=== PATIENT | female | born 2000 | race Two or more races ===

== ENCOUNTER 2020-05-23 14:45 | Inpatient (IN) | payer OTHER ==
[2020-05-23 16:08] VITALS: BP 114/65; PULSE 86; TEMP 98.8; BMI 44.2
[2020-05-23] MEDS ORDERED: ELECTROLYTE-148 SOLN 1,000 ML IV SCH (16:15)
[2020-05-23] MEDS ORDERED: BETAMET ACET/BETAMET NA PH 30 MG/5 ML VIAL ONE (16:28)
== END 2020-05-23 18:19 | disposition short-term general hospital (02) | DRG 833 ==
LOC: JDEL 14:45 → JLDR 15:40
PROVIDERS: ADMIT Obstetrics & Gynecology; ATTEND Obstetrics & Gynecology
DX: O34.32 Maternal care for cervical incompetence, second trimester (principal); O99.212 Obesity complicating pregnancy, second trimester; O26.872 Cervical shortening, second trimester; Z3A.22 22 weeks gestation of pregnancy
CPT/HCPCS: 59025; 76801-TC

== ENCOUNTER 2020-07-20 10:18 | Inpatient (IN) | payer OTHER ==
[2020-07-20 10:24] VITALS: BMI 44.2
[2020-07-20 11:28] LABS: EPI CELLS 21 /uL (0-25.1); HYALINE CASTS 2 /uL (0-3.1); URINE APPEARANCE CLEAR; URINE BACTERIA 841 /uL (0-1359); URINE BILIRUBIN NEGATIVE (NEGATIVE); URINE COLOR YELLOW; URINE GLUCOSE (UA) NEGATIVE (NEGATIVE); URINE KETONE NEGATIVE (NEGATIVE); URINE LEUK ESTERASE 1+ (NEGATIVE); URINE NITRITE NEGATIVE (NEGATIVE); URINE PROTEIN TRACE (NEGATIVE); URINE WBC 120 /uL (0-25.8)
[2020-07-20 11:29] LABS: HCG,QUALITATIVE URINE Negative
[2020-07-20 11:38] LABS: URINE RBC 34.6 /uL (0-23.9)
[2020-07-20] MEDS ORDERED: ACETAMINOPHEN 325 MG TABLET (FP) PO ONE (11:51)
[2020-07-20] MEDS ORDERED: FAMOTIDINE 20 MG TABLET PO ONE (11:51)
[2020-07-20] MEDS ORDERED: ACETAMINOPHEN 325 MG TABLET (FP) ONE (12:22)
[2020-07-20] MEDS ORDERED: FAMOTIDINE 20 MG TABLET ONE (12:23)
[2020-07-20 13:43] LABS: BASO % 0.7 % (0-2.0); EOS % 1.8 % (0-4.5); HEMATOCRIT 39.9 % (32.4-45.2); HEMOGLOBIN 13.4 GM/dL (10.7-15.3); LYMPH % 52.1 % (8-40); MCH 30.8 pg (25.7-33.7); MCHC 33.5 g/dl (32.0-36.0); MEAN CELL VOLUME 91.9 fl (80-96); MEAN PLT VOLUME 7.9 fl (7.5-11.1); MONO % 5.2 % (3.8-10.2); NEUT % 40.2 % (42.8-82.8); PLATELET COUNT 339 10^3/uL (134-434); RBC 4.34 M/mm3 (3.60-5.2); RDW 12.4 % (11.6-15.6); WHITE BLOOD COUNT 3.6 K/mm3 (4.0-10.0)
[2020-07-20 14:05] LABS: CALCIUM 9.6 mg/dL (8.5-10.1)
[2020-07-20 14:06] LABS: ALBUMIN 3.8 g/dl (3.4-5.0); BLOOD UREA NITROGEN 13.1 mg/dL (7-18)
[2020-07-20 14:09] LABS: CREATININE 0.6 mg/dL (0.55-1.3)
[2020-07-20 14:10] LABS: BILIRUBIN,TOTAL 1.2 mg/dL (0.2-1); TOT PROT 7.8 g/dl (6.4-8.2)
[2020-07-20] MEDS ORDERED: PIPERACILLIN/TAZOB 3.375 GM 3.375 GM in DEXTROSE 5%-WATER - 50 ML IVPB ONE (14:22)
[2020-07-20] MEDS ORDERED: PIPERACILLIN/TAZOB 3.375 GM 3.375 GM/50 ML BAG IVPB ONE (14:40)
[2020-07-20 15:10] LABS: PROTHROMBIN TIME (PATIENT) 12.3 SEC (9.7-13.0)
[2020-07-20] MEDS ORDERED: oxyCODONE HCL 5 MG TABLET PO PRN (15:18)
[2020-07-20] MEDS ORDERED: morphine CARPU-JECT 2 MG/1 ML DISP.SYRIN IVPUSH PRN (15:18)
[2020-07-20] MEDS ORDERED: ONDANSETRON 4 MG/2 ML VIAL IVPUSH PRN (15:23)
[2020-07-20] MEDS: SODIUM CHLORIDE 1,000 ML IV SCH (16:18)
[2020-07-20] MEDS ORDERED: PIPERACILLIN/TAZOB 3.375 GM 3.375 GM in DEXTROSE 5%-WATER - 50 ML IVPB SCH (18:00)
[2020-07-20] MEDS ORDERED: MORPHINE SULFATE 2 MG/ML VIAL IVPUSH PRN (23:27)
[2020-07-21] MEDS ORDERED: PIPERACILLIN/TAZOBACTAM 3.375 GM VIAL IVPB ONE ×3 (01:48→17:35)
[2020-07-21] MEDS ORDERED: DEXTROSE 5%-WATER - 50 ML IVPB ONE ×3 (01:49→17:35)
[2020-07-21] MEDS: SODIUM CHLORIDE 1,000 ML IV SCH ×2 (05:51→17:44)
[2020-07-21 07:47] LABS: HEMATOCRIT 36.1 % (32.4-45.2); HEMOGLOBIN 12.5 GM/dL (10.7-15.3); MCH 31.5 pg (25.7-33.7); MCHC 34.5 g/dl (32.0-36.0); MEAN CELL VOLUME 91.2 fl (80-96); MEAN PLT VOLUME 7.6 fl (7.5-11.1); PLATELET COUNT 270 10^3/uL (134-434); RBC 3.96 M/mm3 (3.60-5.2); RDW 12.4 % (11.6-15.6); WHITE BLOOD COUNT 3.4 K/mm3 (4.0-10.0)
[2020-07-21 07:58] LABS: CALCIUM 8.8 mg/dL (8.5-10.1)
[2020-07-21 07:59] LABS: ALBUMIN 3.5 g/dl (3.4-5.0); BLOOD UREA NITROGEN 10.5 mg/dL (7-18); MAGNESIUM 1.9 mg/dL (1.8-2.4)
[2020-07-21 08:00] LABS: CREATININE 0.6 mg/dL (0.55-1.3); PHOSPHOROUS 3.4 mg/dL (2.5-4.9)
[2020-07-21 08:01] LABS: BILIRUBIN,TOTAL 1.1 mg/dL (0.2-1); TOT PROT 6.9 g/dl (6.4-8.2)
[2020-07-21] MEDS ORDERED: DOCUSATE SODIUM 100 MG CAPSULE (FP) PO SCH (10:00)
[2020-07-21] MEDS ORDERED: PIPERACILLIN/TAZOB 3.375 GM 3.375 GM in DEXTROSE 5%-WATER - 50 ML IVPB SCH ×3 (10:00→18:00)
[2020-07-21] MEDS ORDERED: BUPIVACAINE HCL 50 ML ONE (11:05)
[2020-07-21] MEDS ORDERED: morphine SULFATE 4 MG/ML VIAL IVPB PRN ×2 (12:56→16:32)
[2020-07-21] MEDS ORDERED: MIDAZOLAM HCL 2 MG/2 ML SINGLE DOSE VIAL ONE (12:59)
[2020-07-21] MEDS ORDERED: LIDOCAINE HCL 2% JELLY 10 ML CARTRIDGE ONE (13:02)
[2020-07-21] MEDS ORDERED: LIDOCAINE HCL/PF 2% SDV 5ML VIAL ONE (13:02)
[2020-07-21] MEDS ORDERED: PROPOFOL 20 ML ONE ×2 (13:03)
[2020-07-21] MEDS ORDERED: fentaNYL CITRATE 250 MCG/5 ML VIAL ONE (13:05)
[2020-07-21] MEDS ORDERED: KETAMINE HCL 200 MG/20 ML VIAL ONE (13:05)
[2020-07-21] MEDS ORDERED: ROCURONIUM BROMIDE 50 MG/5 ML SYRINGE ONE (13:23)
[2020-07-21] MEDS ORDERED: NEOSTIGMINE METHYLSULFATE 0.5 MG/ML - 10 ML MDV ONE (13:24)
[2020-07-21] MEDS ORDERED: GLYCOPYRROLATE 0.2 MG/1 ML VIAL ONE (13:24)
[2020-07-21] MEDS ORDERED: KETOROLAC TROMETHAMINE 30 MG/1 ML VIAL ONE (13:24)
[2020-07-21] MEDS ORDERED: BUPIVACAINE HCL/PF 0.5% (5 MG/ML) 30 ML VIAL IJ ONE (14:14)
[2020-07-21] MEDS ORDERED: ACETAMINOPHEN INJECTION 100 ML IVPB ONE (14:40)
[2020-07-21] MEDS ORDERED: ONDANSETRON 4 MG/2 ML VIAL IVPUSH PRN ×4 (14:45→17:03)
[2020-07-21] MEDS: ACETAMINOPHEN 1000 MG/100 ML VIAL (NON FORMULARY) IVPB ONE (15:00)
[2020-07-21] MEDS ORDERED: SODIUM CHLORIDE 1,000 ML IV SCH ×2 (15:24→16:32)
[2020-07-21] MEDS ORDERED: oxyCODONE HCL 5 MG TABLET PO PRN ×4 (15:24→17:18)
[2020-07-21] MEDS ORDERED: PT OWN MED DRAWER 7, Y5N ONE (17:11)
[2020-07-21] MEDS: morphine SULFATE 4 MG/ML VIAL IVPB PRN ×2 (17:42→21:37)
[2020-07-22] MEDS ORDERED: DEXTROSE 5%-WATER - 50 ML IVPB ONE ×3 (00:57→10:22)
[2020-07-22] MEDS ORDERED: PIPERACILLIN/TAZOBACTAM 3.375 GM VIAL IVPB ONE ×3 (00:57→10:22)
[2020-07-22] MEDS: PIPERACILLIN/TAZOB 3.375 GM 3.375 GM in DEXTROSE 5%-WATER - 50 ML IVPB SCH ×2 (01:01→10:24)
[2020-07-22] MEDS: morphine SULFATE 4 MG/ML VIAL IVPB PRN (05:26)
[2020-07-22] MEDS: SODIUM CHLORIDE 1,000 ML IV SCH (05:28)
[2020-07-22 07:12] LABS: HEMATOCRIT 33.9 % (32.4-45.2); HEMOGLOBIN 11.6 GM/dL (10.7-15.3); MCH 31.3 pg (25.7-33.7); MCHC 34.1 g/dl (32.0-36.0); MEAN CELL VOLUME 91.8 fl (80-96); MEAN PLT VOLUME 7.6 fl (7.5-11.1); PLATELET COUNT 290 10^3/uL (134-434); RBC 3.69 M/mm3 (3.60-5.2); RDW 12.6 % (11.6-15.6)
[2020-07-22 07:34] LABS: BLOOD UREA NITROGEN 8.4 mg/dL (7-18); MAGNESIUM 1.8 mg/dL (1.8-2.4)
[2020-07-22 07:37] LABS: CREATININE 0.6 mg/dL (0.55-1.3); PHOSPHOROUS 3.6 mg/dL (2.5-4.9)
[2020-07-22 09:07] VITALS: BP 120/68; PULSE 73; TEMP 98.3
[2020-07-22] MEDS ORDERED: DOCUSATE SODIUM 100 MG CAPSULE (FP) PO SCH ×3 (10:00)
[2020-07-22] MEDS ORDERED: ASPIRIN 81 MG CHEWABLE TABLETS PO SCH ×2 (10:00)
[2020-07-22] MEDS ORDERED: ENOXAPARIN NA (PORCINE) 40 MG/0.4 ML DISP.SYRIN SQ SCH ×3 (10:00)
[2020-07-22] MEDS ORDERED: PANTOPRAZOLE SODIUM 40 MG VIAL IVPUSH SCH ×3 (10:00)
[2020-07-23] MEDS ORDERED: ASPIRIN 81 MG CHEWABLE TABLETS PO SCH (10:30)
== END 2020-07-22 13:50 | disposition home or self-care (01) | DRG 418 ==
LOC: JER 10:18 → JERBED 14:21 → J7W 20:43 → J4W 07-21 16:56
PROVIDERS: ATTEND Internal Medicine
PROC: 0FT44ZZ Resection of Gallbladder, Percutaneous Endoscopic Approach (ICD-10-PCS; principal; 2020-07-21 13:33)
DX: K80.00 Calculus of gallbladder with acute cholecystitis without obstruction (principal); Z68.41 Body mass index [BMI] 40.0-44.9, adult; I48.92 Unspecified atrial flutter; I10 Essential (primary) hypertension; E78.5 Hyperlipidemia, unspecified; G47.33 Obstructive sleep apnea (adult) (pediatric); E66.01 Morbid (severe) obesity due to excess calories; K76.0 Fatty (change of) liver, not elsewhere classified
CPT/HCPCS: 36415; 71046-TC-FY; 76705-TC; 80048; 80053; 81003; 83036; 83690; 83735; 84100; 84443; 84703; 85025; 85027; 85610; 86850; 86900; 86901; 87086; 88304-TC; 93005; 93010; 94760; 99285-25; C9803; J0131; U0003; U0005